=== PATIENT | female | born 1940 | race Caucasian/White ===

== ENCOUNTER 2021-11-12 10:34 | Outpatient (CLI) | payer OTHER, SELFPAY | END 2021-11-12 10:35 | disposition home or self-care (01) | LOC: ANHAUDIO 10:35 | PROVIDERS: PCP Family Medicine; Visit Provider Otolaryngology | DX: H93.13 Tinnitus, bilateral (principal) | CPT/HCPCS: 92557; 92567 ==

== ENCOUNTER 2021-11-20 13:13 | Outpatient (CLI) | payer OTHER, SELFPAY ==
--- NOTE | ~2021-11-20 | US_ITS ---
EXAMINATION: US carotid duplex BI DATE: 11/20/2021 13:54 INDICATION: Lightheadedness TECHNIQUE: Grayscale, color Doppler, and pulsed Doppler images of the cervical carotid arteries were obtained. The degree of vessel stenosis is placed in one of the following categories: normal, <50%, 5 0-69%, >=70% but less than near-occlusion, near-occlusion, or total occlusion. Note that percent sten osis relative to normal distal artery lumen diameter is indirectly measured from velocity measurement s as described by Kofi, et al. Radiology 2003; 229:340-346. Notes: Normal: Peak systolic velocity <125 centimeters/sec and no plaque <50%. Peak systolic velocity <125 ( EDV <40; ICA/CCA PSV ratio <2.0; used these factors only a tandem lesions or low cardiac output or co ntralateral disease) 50-69 %: PSV 125-230 (EDV 40-100; ratio 2-4) >= 70% but less than near occlusion: PSV greater than 230 (EDV > 100; ratio> 4.0) Near Occlusion: PSV that is variable; markedly narrowed lumen Occlusion: Absent flow on color/spectral Doppler and no lumen on wong scale. COMPARISON: None. FINDINGS: RIGHT: The right common carotid artery (CCA) peak systolic velocity (PSV) is 79 cm/s. The right internal car otid artery (ICA) PSV is 78 cm/s. The right ICA end-diastolic velocity (EDV) is 15 cm/s. The right IC A/CCA PSV ratio is 1.. The external carotid artery (ECA) PSV is 97 cm/s. There is antegrade flow in t he right vertebral artery. LEFT: The left CCA PSV is 108 cm/s. The left ICA PSV is 121 cm/s. The left ICA EDV is 18 cm/s. The left ICA /CCA PSV ratio is 1.1. The ECA PSV is 132 cm/s. There is antegrade flow in the left vertebral artery . IMPRESSION: 1. Less than 50% stenosis in the right internal carotid artery by sonographic criteria. 2. Less than 50% stenosis in the left internal carotid artery by sonographic criteria. Reviewed, dictated and finalized at location A. IMPRESSION: 1. Less than 50% stenosis in the right internal carotid artery by sonographic jesse narayan. 2. Less than 50% stenosis in the left internal carotid artery by sonographic zulema patel.
== END 2021-11-20 13:14 | disposition home or self-care (01) ==
LOC: ANHIMG 13:17
PROVIDERS: PCP Family Medicine; Visit Provider Family Medicine
DX: R42 Dizziness and giddiness (principal); I65.23 Occlusion and stenosis of bilateral carotid arteries
CPT/HCPCS: 93880

== ENCOUNTER → 2021-12-16 14:50 | Outpatient (CLI) | payer OTHER, SELFPAY ==
--- NOTE | ~2021-12-16 | CT_ITS ---
EXAMINATION: CTA brain DATE: 12/16/2021 15:58 INDICATION: Pulsatile tinnitus. TECHNIQUE: Computed tomographic angiography (CTA) of the head was performed without and with 100 mL O mnipaque-350 intravenous contrast. Automated exposure control and iterative reconstruction technique were employed. The dose-length product was 1120.52 mGy-cm. Maximum intensity projection 3D reconstru ctions were created. Volume-rendered 3D reconstructions of the intracranial arteries were created by the technologist on a separate workstation. COMPARISON: Head CT 10/28/2017, brain MRI 11/03/2018 FINDINGS: There are scattered areas of low attenuation in the cerebral white matter. There is no intr acranial hemorrhage, acute infarction, or abnormal intracranial mass lesion. The ventricles are daniel l in size. There are likely changes of ocular lens replacement surgeries. Right ocular globe is small and aspherical with calcifications, consistent with atelectasis bullae. The paranasal sinuses are cl ear. The middle ears are normal. The mastoid air cells are normal. Left vertebral artery is dominant. There is no significant stenosis of basilar artery or the posterior cerebral arteries. The posterior communicating arteries are normal. There is no significant stenosis of the intracranial internal car otid arteries or anterior or middle cerebral arteries. 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 There is a 6 mm saccular aneurysm of supraclinoid right in ternal carotid artery directed anteroinferolaterally. There is a 2 mm saccular aneurysm of supraclino id left internal carotid artery directed inferiorly. IMPRESSION: 1. Moderate nonspecific cerebral white matter disease, which likely represents chronic small vessel i schemic disease. 2. 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 2. 2 mm saccular aneurysm of supraclinoid left internal carotid artery. 3. 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 Reviewed, dictated and finalized at location B. IMPRESSION: 1. Moderate nonspecific cerebral white matter disease, which likely represents chronic small vessel ischemic disease. 2. 3 mm saccular aneurysm of the ophthalmic segment of left internal carotid ar louise. 2. 2 mm saccular aneurysm of supraclinoid left internal carotid artery. 3. 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
[2021-12-16 15:13] LABS: Estimated Glomerular Filt Rate 40
== END ==
PROVIDERS: PCP Family Medicine; Visit Provider Otolaryngology
DX: H93.A3 Pulsatile tinnitus, bilateral (principal); R90.82 White matter disease, unspecified; I72.0 Aneurysm of carotid artery
CPT/HCPCS: 70496; Q9967

== ENCOUNTER 2022-09-28 12:30 | Outpatient (CLI) | payer OTHER, SELFPAY ==
--- NOTE | 2022-09-28 14:00 | NEURO_ITS ---
Impression: # Complains of numbness of right 5th finger. # Right ulnar neuropathy. # No Carpal Tunnel Syndrome. # Needle/EMG exam not requested. Nerve Conduction Studies Anti Sensory Summary Table Stim Site NR Peak (ms) P-T Amp (?V) Site1 Site2 Delta-P (ms) Dist (cm) Jason (m/s) Right Median Anti Sensory (2-3nd Digit) Wrist 3.4 10.7 Wrist 2-3nd Digit 3.4 14.0 41 Wrist 3.6 38.4 Wrist 2-3nd Digit 3.4 14.0 41 Right Radial Anti Sensory (Base 1st Digit) Wrist 2.7 15.5 Wrist Base 1st Digit 2.7 0.0 Right Ulnar Anti Sensory (5th Digit) Wrist 2.9 46.3 Wrist 5th Digit 2.9 14.0 48 Motor Summary Table Stim Site NR Onset (ms) O-P Amp (mV) Site1 Site2 Delta-0 (ms) Dist (cm) Jason (m/s) Right Median Motor (Abd Poll Brev) Wrist 4.0 3.9 Elbow Wrist 4.8 27.0 56 Elbow 8.8 4.5 Right Ulnar Motor (Abd Dig Minimi) Wrist 2.8 6.0 A Elbow Wrist 6.0 26.0 43 A Elbow 8.8 4.2 B Elbow Wrist 3.9 18.0 46 B Elbow 6.7 3.9 F Wave Studies NR F-Lat (ms) L-R F-Lat (ms) Right Median (Mrkrs) (Abd Poll Brev) 29.54 Right Ulnar (Mrkrs) (Abd Dig Min) 30.18 MTDD
== END 2022-09-28 12:31 | disposition home or self-care (01) ==
LOC: ANHNEURO 12:32
PROVIDERS: PCP Family Medicine; Visit Provider Family Medicine
DX: R20.2 Paresthesia of skin (principal); G56.21 Lesion of ulnar nerve, right upper limb
CPT/HCPCS: 95909

== ENCOUNTER 2022-11-08 15:17 | Outpatient (CLI) | payer OTHER, SELFPAY ==
--- NOTE | ~2022-11-08 | US_ITS ---
EXAMINATION: US pelvic complete DATE: 11/08/2022 16:06 INDICATION: Uterine prolapse Comparison:No prior studies for comparison. TECHNIQUE: Multiple transabdominal sonographic images of the pelvis performed. FINDINGS: The uterus measures 5.4 x 2 x 4.6 cm. There are coarse myometrial calcifications, possibly due to underlying fibroid changes. The endometrial complex measures 2 mm. The right ovary measures 1.5 x 0.7 x 1.1 cm and the left ovary measures 1.3 x 1.2 x 1 cm. There are small follicles in each ovary. Normal doppler signal in both ovaries. There is no free fluid in the pelvis. There are no abnormal masses seen on either side. IMPRESSION: 1. Unremarkable pelvic ultrasound. Reviewed, dictated and finalized at location B.
== END 2022-11-08 15:18 | disposition home or self-care (01) ==
PROVIDERS: PCP Family Medicine; Visit Provider Urology
DX: N81.4 Uterovaginal prolapse, unspecified (principal)
CPT/HCPCS: 76856

== ENCOUNTER 2023-03-01 07:51 | Outpatient (CLI) | payer OTHER, SELFPAY ==
--- NOTE | 2023-03-01 08:46 | ECG_ITS ---
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
[2023-03-01 09:12] LABS: Basophils Absolute Auto 0.1 K/mm3 (0.0-0.1); Basophils Percent Auto 0.7 % (0.2-1.2); Eosinophils Absolute Auto 0.2 K/mm3 (0-0.3); Eosinophils Percent Auto 3.3 % (0-4.4); Hematocrit 36.3 % (37.0-47.0); Hemoglobin 12.1 g/dL (12.0-15.0); Immature Granulocyte Absolute 0.04 K/mm3 (0.00-0.031); Immature Granulocyte Percent A 0.6 % (0-0.5); Lymphocytes Absolute Auto 1.55 K/mm3 (0.9-3.2); Lymphocytes Percent Auto 21.4 % (18.3-44.2); Mean Corpuscular HGB Conc 33.3 g/dl (32-36); Mean Corpuscular Hemoglobin 32.2 pg (26-34); Mean Corpuscular Volume 96.5 fl (80-100); Mean Platelet Volume 10.8 fl (7.4-10.4); Monocytes Absolute Auto 0.5 K/mm3 (0.1-0.6); Monocytes Percent Auto 6.6 % (2.6-8.5); Neutrophils Absolute Auto 4.9 K/mm3 (1.3-6.7); Neutrophils Percent Auto 67.4 % (45.5-73.1); Platelet Count Result 147 k/mm3 (150-375); Red Blood Count 3.76 M/mm3 (4.2-5.4); Red Cell Distribution Width 12.2 % (11.5-14.5); White Blood Count 7.2 K/mm3 (4.5-10.0)
[2023-03-01 09:23] LABS: INR 1.1; Partial Thromboplastin Time 32.2 SECONDS (22.3-36.8)
[2023-03-01 09:24] LABS: Alanine Aminotransferase 16 U/L (6-35); Albumin Level 4.2 g/dL (3.5-5.1); Alkaline Phosphatase 57 U/L (38-126); Anion Gap 10 mmol/L (8-16); Aspartate Amino Transferase 22 U/L (14-36); Bilirubin,Total 0.8 mg/dL (0.2-1.3); Blood Urea Nitrogen 27 mg/dL (7-17); Calcium 9.5 mg/dL (8.4-10.2); Carbon Dioxide 28 mmol/L (22-30); Chloride 103 mmol/L (98-107); Estimated Glomerular Filt Rate 43; Glucose 137 mg/dL (65-110); Potassium 3.9 mmol/L (3.4-5.0); Sodium 141 mmol/L (137-145)
== END 2023-03-01 07:52 | disposition home or self-care (01) ==
LOC: ANHSURGERY 07:55
PROVIDERS: PCP Family Medicine; Visit Provider Urology
DX: N81.9 Female genital prolapse, unspecified (principal); I10 Essential (primary) hypertension; Z01.818 Encounter for other preprocedural examination; I45.9 Conduction disorder, unspecified
CPT/HCPCS: 36415; 80053; 85025; 85610; 85730; 86850; 86900; 86901; 93005

== ENCOUNTER 2023-03-11 03:28 | Day surgery (SDC) | payer OTHER, SELFPAY ==
--- NOTE | 2023-03-01 07:52 | PC.NURSE ---
PRE-OP INSTRUCTIONS, PLEASE READ CAREFULLY Report to the Outpatient Waiting Room, entrance under the green pavilion located off [facility], at time _0615_ on date _03/11/23_. Planned Procedure Time: _0815_. PACK A SMALL OVERNIGHT BAG AND LEAVE IT IN THE CAR Time changes happen often and if your time is changed the preop area will call you the afternoon before. - You and your visitor will be asked to self-screen and do not enter if you have any COVID symptoms. - A mask is optional within the hospital at this time. -VISITING HOURS 8AM-8PM Patients may have clear liquids (water, carbonated beverages, clear teas, apple juice) until 3 hours prior to surgery (0515 AM) with a maximum of 20 ounces. - No food from midnight until time of surgery Take the following medications with a SIP of water the morning of surgery: _AMLODIPINE, BUSPIRONE, METOPROLOL & TYLENOL, SPIRIVA INHALER, NASAL SPRAY, NITROGLYCERIN IF NEEDED_ DO NOT STOP ANY OF YOUR OTHER PRESCRIPTION MEDICATIONS PRIOR TO SURGERY ?EXCEPT THE FOLLOWING Medications to discontinue - _ASPIRIN PER DR. CARVALHO'S INSTRUCTIONS, Date to take last dose_CALL DR. CARVALHO'S OFFICE FOR INSTRUCTIONS ([phone]) _ Please no make-up, nail anguillan, hairspray, perfume, deodorant, or body powder the day of surgery. No jewelry (including any body piercings) or valuables the day of surgery, leave them at home. Please take a shower or bath the night before, or the morning of, surgery with an antibacterial soap. Wear comfortable, loose fitting clothing. - Jewelry must be removed prior to entering the operating room. Rings and piercings that are not removed may be cut off. - The hospital will not accept responsibility for valuables. - Please leave all valuables, including medications, at home the day of surgery. If you are going home after surgery, a licensed lead driver must drive you home. - NO public transportation without another adult if you receive anesthesia. - We recommend that an adult stay with you for 24 hours following discharge. - We also recommend that you do not drive, make important decision, drink alcoholic beverages, or take any drugs that were not prescribed by your health care provider for at least 24 hours after your discharge time. Follow any additional instructions given to you from your surgeon. If you or anyone in your household have experienced Covid symptoms in the past week, please notify your surgeon or the nurse liaison at the phone number below for possible testing. Instructions given to _PATIENT_and asked if any additional questions and then verbalized understanding. Patient advised to call pre surgery nurse liaison [phone] if any additional questions.
[2023-03-01 08:23] VITALS: BP 162/58; PULSE 62; RESP 18; TEMP 36.8; O2SAT 99; BMI 16.2
--- NOTE | 2023-03-06 10:11 | PM.IMHP ---
H&P: HPI History of Present Illness Date/Time: 03/06/23 10:11 Chief Complaint: uterine prolapse Narrative: she is significant uterine prolapse. Normal endometrial thickness. No stress incontinence. She desires a surgical approach Review of Systems Review of Systems: All systems reviewed & are unremarkable except as noted in HPI and below PMFSH Past Medical History Medical History Urinary incontinence Social History Social History Smoking status: Former smoker Tobacco type: cigarettes Second hand tobacco smoke exposure: No Additional smoking assessment comments: PT UNALBE TO RECALL SMOKING HX - STATES QUIT WHEN HAD BYPASS SURGERY Alcohol intake: never Substance use: never Substance use type: does not use Living arrangements: alone Spiritual care concerns: No Meds Home Medications and Allergies Home Medications Medication Instructions Recorded Confirmed Type acetaminophen 325 mg capsule 325 mg PO Q6H PRN Pain 06/30/20 03/01/23 History (Tylenol) amlodipine 10 mg tablet 10 mg PO DAILY 06/30/20 03/01/23 History buspirone 5 mg tablet 5 mg PO BID 06/30/20 03/01/23 History fluticasone propionate 50 1 spray intranasal DAILY PRN 06/30/20 03/01/23 History mcg/actuation nasal Congestion spray,suspension (Flonase Allergy Relief) metoprolol succinate 100 mg 100 mg PO DAILY 06/30/20 03/01/23 History tablet,extended release 24 hr omeprazole 20 mg capsule,delayed 20 mg PO DAILY 06/30/20 03/01/23 History release simvastatin 40 mg tablet 40 mg PO DAILY 06/30/20 03/01/23 History tiotropium bromide 18 mcg capsule 1 cap inhalation DAILY PRN 06/30/20 03/01/23 History with inhalation device (Spiriva Congestion with HandiHaler) nitroglycerin 0.4 mg sublingual 0.4 mg sublingual Q5M PRN Chest 11/09/21 03/01/23 History tablet Pain aspirin 325 mg capsule 325 mg PO DAILY 03/01/23 03/01/23 History isosorbide mononitrate 60 mg 60 mg PO DAILY 03/01/23 03/01/23 History tablet,extended release 24 hr potassium chloride 20 mEq 20 meq PO DAILY 03/01/23 03/01/23 History tablet,extended release(part/cryst) (Klor-Con M) Allergies Allergy/AdvReac Type Severity Reaction Status Date / Time No Known Allergies Allergy Verified 03/01/23 08:12 Exam Narrative: thin no acute distress uterine prolapse +8 Assessment and Plan Assessment and plan (1) Uterine prolapse: Code(s): N81.4 - Uterovaginal prolapse, unspecified Status: Acute Assessment and Plan: plan for colpocleisis. Understands risks of bleeding, infection, damage to bladder bowel, damage to the ureters or surrounding organs, inability to have penetrative intercourse, postoperative voiding dysfunction including incontinence and retention, hip and leg pain, recurrence of prolapse. Agrees to proceed
[2023-03-11] VITALS (11 sets, daily range): BP systolic 132–170; BP diastolic 52–102; PULSE 58–67; RESP 11–20; TEMP 36.3; O2SAT 91–100
--- NOTE | 2023-03-11 07:17 | WPDHPUPDATE1 ---
History and Physical Update Update Date/Time: 03/11/23 07:17 History and Physical has been reviewed, including an updated exam of the patient. There are NO changes in the patient's condition. Risks, benefits, and alternatives have been discussed and questions answered. Patient agrees to proceed with procedure.
--- NOTE | 2023-03-11 08:48 | WPDANESEPPF ---
Anes - Initial Pre Proc Eval Procedure: Operation Date: 03/11/23 10:00 Proposed Procedures p Colpocleisis, - Kenton Galarza MD s Urethral Sling - Kenton Galarza MD Date/Time: 03/11/23 08:48 Surgeon: Kenton Galarza MD Pre Op Diagnosis: uterine prolapse, stress incontinence Patient Data Age: 82 Gender: F Height: 1.57 m Weight: 40.2 kg Last Vital Signs Temp 98.2 F 03/01/23 08:23 Pulse 62 03/01/23 08:23 Resp 18 03/01/23 08:23 BP 162/58 H 03/01/23 08:23 Pulse Ox 99 03/01/23 08:23 O2 Del Method Room Air 03/01/23 08:23 Allergies Allergy/AdvReac Type Severity Reaction Status Date / Time No Known Allergies Allergy Verified 03/01/23 08:12 Home Medications Medication Instructions Recorded Confirmed Type acetaminophen 325 mg capsule 325 mg PO Q6H PRN Pain 06/30/20 03/01/23 History (Tylenol) amlodipine 10 mg tablet 10 mg PO DAILY 06/30/20 03/01/23 History buspirone 5 mg tablet 5 mg PO BID 06/30/20 03/01/23 History fluticasone propionate 50 1 spray intranasal DAILY PRN 06/30/20 03/01/23 History mcg/actuation nasal Congestion spray,suspension (Flonase Allergy Relief) metoprolol succinate 100 mg 100 mg PO DAILY 06/30/20 03/01/23 History tablet,extended release 24 hr omeprazole 20 mg capsule,delayed 20 mg PO DAILY 06/30/20 03/01/23 History release simvastatin 40 mg tablet 40 mg PO DAILY 06/30/20 03/01/23 History tiotropium bromide 18 mcg capsule 1 cap inhalation DAILY PRN 06/30/20 03/01/23 History with inhalation device (Spiriva Congestion with HandiHaler) nitroglycerin 0.4 mg sublingual 0.4 mg sublingual Q5M PRN Chest 11/09/21 03/01/23 History tablet Pain aspirin 325 mg capsule 325 mg PO DAILY 03/01/23 03/01/23 History isosorbide mononitrate 60 mg 60 mg PO DAILY 01/02/24 01/02/24 History tablet,extended release 24 hr potassium chloride 20 mEq 20 meq PO DAILY 03/01/23 03/01/23 History tablet,extended release(part/cryst) (Donta Melendez) Patient hx anesthesia problems: none Family hx anesthesia problems: none Results Review: All pre-operative results and documents have been reviewed as part of the pre-operative evaluation. PMFSH Past Medical History Medical History Urinary incontinence Social History Social History Smoking status: Former smoker Tobacco type: cigarettes Second hand tobacco smoke exposure: No Additional smoking assessment comments: PT UNALBE TO RECALL SMOKING HX - STATES QUIT WHEN HAD BYPASS SURGERY Alcohol intake: never Substance use: never Substance use type: does not use Living arrangements: alone Spiritual care concerns: No Anes - Eval Final PreProcedure Day of Procedure 03/11/23 08:48 Patient weight: cachectic Heart: regular rate and rhythm Lungs: clear to auscultation Airway: Mallampati scale class II Neurological: alert and oriented Last oral intake: >/= 8 hours ASA classification: III Emergent: no Anesthetic plan: proceed Anesthesia type and monitoring: general LMA and standard monitoring Results Review: All pre-operative results and documents have been reviewed as part of the pre-operative evaluation. Informed Consent: The patient's anesthetic plan and its attendant risks and benefits were discussed with the patient/family/POA. Questions were solicited and answers provided to the satisfaction of the patient/family/POA.
[2023-03-11] MEDS: ceFAZolin 2 GM/D5W 50 ML 2 GM/50 ML BAG IVPB (09:21)
[2023-03-11] MEDS: BUPIVACAINE/EPINEPHRINE 0.5% 50 ML VIAL 20 ML INFILTRATE (09:48)
[2023-03-11] MEDS: LACTATED RINGERS 1,000 ML 30 ML IV CONT ×2 (11:04→13:10)
--- NOTE | 2023-03-11 11:19 | W.PM.PROC2 ---
Procedure Note - Detailed Date of Procedure 03/11/23 Pre-op Diagnosis uterine prolapse Female perineal laxity Post-op Diagnosis Same Procedure Performed Cystocele repair/rectocele repair LeFort colpocleisis Perineal repair Cystoscopy Surgeon Kenton Galarza MD Anesthesia General Findings This is a woman with significant uterine prolapse. It has been going on for at least a decade. She is not sexually active. She has no stress incontinence. She presents for a colpocleisis. She understands risks of bleeding, infection, damage to any organs, damage to the bowel or urinary tract, recurrence of prolapse, postoperative voiding dysfunction including incontinence and retention. Agrees to proceed Description of Procedure She was correctly identified. Informed consent obtained. She from the operating room. She was given general anesthesia. She was placed in the dorsal lithotomy position. She was prepped and draped in a sterile fashion. Time-out performed. I placed Hong catheter. I placed a Carlton retractor. She had significant uterine prolapse 10 cm beyond the introitus. She has a negative endometrial ultrasound. I santos a rectangle shaped area on the anterior vaginal wall and a rectangle shaped area on the posterior vaginal wall. I anesthetized the mucosa on the posterior vaginal wall. I removed the mucosa leaving the underlying fascial structures. I then did the same on the anterior vaginal wall. I then performed a plication type cystocele rectocele repair which essentially performed a LeFort colpocleisis leaving drainage tunnels on the side. I did this with several interrupted rows of 0 Vicryl suture. This completed a closure of the vagina. I then closed mucosa to mucosa with a horizontal mattress interrupted 0 Vicryl suture. There was excellent hemostasis. There was excellent repair of the prolapse. I then turned my attention to the perineum. She had significant perineal laxity. I santos out a rula-shaped area of skin on the perineum. I anesthetized the skin. I removed the skin. I then performed a high perineoplasty with interrupted 0 Vicryl sutures. I used a 2-0 Vicryl to close mucosa to mucosa. There was excellent perineal support On cystoscopy she had moderate trabeculations. No surgical artifact. No abnormalities or stones. No tumors. Ureteral patency was documented bilaterally by pacing guidewires up both ureters and seen clear excretion of clear yellow urine. I once again assured hemostasis. Rectal exam was normal. She was awakened transferred to PACU in stable condition.
== END 2023-03-11 14:26 | disposition home or self-care (01) ==
PROVIDERS: PCP Family Medicine; Visit Provider Urology
PROC: (CPT 57120; principal; 2023-03-11 10:00)
DX: N81.4 Uterovaginal prolapse, unspecified (principal); N32.89 Other specified disorders of bladder; Z87.891 Personal history of nicotine dependence
CPT/HCPCS: 57260; 36415; 80053; 85025; 85610; 85730; 86850; 86900; 86901; 93005; C1758; C1769; J0690; J1100; J2405; J2704; J3010; J7030; J7120; Q9968

== ENCOUNTER 2023-09-26 15:29 | Outpatient (CLI) | payer OTHER, SELFPAY ==
--- NOTE | ~2023-09-26 | US_ITS ---
EXAMINATION: US renal BI DATE: 09/26/2023 16:31 INDICATION: Stage IIIB chronic kidney disease TECHNIQUE: Multiple ultrasound grayscale images of the kidneys were obtained. COMPARISON: None. FINDINGS: The right kidney measures 8.3 x 4.3 x 3.7 cm. The left kidney measures 8.8 x 3.8 x 3.2 cm. The kidney s demonstrate normal echogenicity. Likely age-related mild bilateral renal cortical thinning. There i s no hydronephrosis in either kidney. No shadowing renal stones identified. The bladder is incomplet donn distended which mildly limits evaluation. Suggestion of mild trabeculation along the bladder muco sa. Bilateral ureteral jets are visualized in the bladder on color Doppler. There are multiple echoge stephany and shadowing gallstones in the normal nondistended gallbladder.. IMPRESSION: 1. Likely age-related mild bilateral renal cortical atrophy. No hydronephrosis. 2. Suggestion of a trabeculated bladder wall which can be seen with chronic outlet obstruction or blas rogenic bladder. Assessment is however limited by incomplete distention of the bladder. 3. Cholelithiasis. Reviewed, dictated and finalized at location A. IMPRESSION: 1. Likely age-related mild bilateral renal cortical atrophy. No hydronephrosis . 2. Suggestion of a trabeculated bladder wall which can be seen with chronic out let obstruction or neurogenic bladder. Assessment is however limited by incompl ete distention of the bladder. 3. Cholelithiasis.
== END 2023-09-26 15:30 | disposition home or self-care (01) ==
PROVIDERS: PCP Family Medicine; Visit Provider Internal Medicine Nephrology
DX: I12.9 Hypertensive chronic kidney disease with stage 1 through stage 4 chronic kidney disease, or unspecified chronic kidney disease (principal); N18.32 Chronic kidney disease, stage 3b; K80.20 Calculus of gallbladder without cholecystitis without obstruction
CPT/HCPCS: 76775

== ENCOUNTER 2023-10-24 14:54 | Outpatient (CLI) | payer OTHER, SELFPAY ==
--- NOTE | ~2023-10-24 | XR_ITS ---
EXAMINATION: XR chest 2V 10/24/2023 15:10 INDICATION: Abnormal weight loss PROCEDURE: 2 view chest COMPARISON: 11/03/2018 FINDINGS: The lungs are clear. Status post median sternotomy for CABG. The cardiomediastinal silhouet te is within normal limits. There are no pleural effusions. There is no pneumothorax suspected. Th ere is atherosclerosis. The lungs are hyperinflated which is consistent with, but not diagnostic of c hronic obstructive pulmonary disease. IMPRESSION: 1: NO ACUTE CARDIOPULMONARY DISEASE. Reviewed, dictated and finalized at location B.
== END 2023-10-24 14:55 ==
LOC: MICIMG 14:56
PROVIDERS: PCP Nurse Practitioner Family; Visit Provider Nurse Practitioner Family
DX: R63.4 Abnormal weight loss (principal)
CPT/HCPCS: 71046

== ENCOUNTER 2023-12-09 09:45 | Outpatient (CLI) | payer OTHER, SELFPAY ==
--- NOTE | ~2023-12-09 | MR_ITS ---
EXAMINATION: MR brain/brain stem wo con DATE: 12/09/2023 10:28 INDICATION: Headache, unspecified. TECHNIQUE: Magnetic resonance imaging (MRI) of the brain and brainstem was performed without intraven ous contrast. COMPARISON: Brain MRI 11/03/2018, head CT 12/16/2021 FINDINGS: There are scattered areas of nonspecific increased T2-weighted signal intensity in the cere bral white matter. There is no intracranial hemorrhage, acute infarction, or abnormal intracranial ma ss lesion. The ventricles are normal in size. There are likely changes of ocular lens replacement caleb geries. Right ocular globe is small and deformed. IMPRESSION: 1. Moderate nonspecific cerebral white matter disease, which likely represents chronic small vessel i schemic disease. Reviewed, dictated and finalized at location A. IMPRESSION: 1. Moderate nonspecific cerebral white matter disease, which likely represents chronic small vessel ischemic disease.
== END 2023-12-09 09:46 | disposition home or self-care (01) ==
PROVIDERS: PCP Nurse Practitioner Family; Visit Provider Nurse Practitioner Family
DX: R90.82 White matter disease, unspecified (principal); R51.9 Headache, unspecified; H53.9 Unspecified visual disturbance
CPT/HCPCS: 70551

== ENCOUNTER 2024-03-08 09:12 | Outpatient (CLI) | payer OTHER, SELFPAY ==
--- NOTE | ~2024-03-08 | CT_ITS ---
CLINICAL INDICATION: Occlusion and stenosis. COMPARISON: None. TECHNIQUE: Computed tomography angiography (CTA) of the abdomen and pelvis was performed with 100 mL Omnipaque-350 intravenous contrast timed to evaluate the abdominal aorta and mesenteric vasculature. Coronal maximum intensity projection 3D-reconstructions were created by the technologist. The dose-le ngth product (DLP) was 182.54 mGy-cm. Automated exposure control and iterative reconstruction Optensity ue were employed. FINDINGS/OBSERVATIONS: Visualized lower thorax:Coarse interstitial lung markings are identified. No discrete mass or pulmona ry nodules are present. Liver: The liver is decreased in attenuation and unremarkable in size measuring 14 cm in longitudinal dimension. Gallbladder and biliary system: Multiple stones are identified within the gallbladder which is otherw ise unremarkable. Pancreas: The pancreas enhances homogeneously, without ductal dilatation. Spleen: Punctate calcifications identified within the splenic parenchyma, suggesting prior granulomat ous disease. The remainder of the spleen otherwise enhances homogeneously, and is not enlarged measu ring 7 cm in longitudinal dimension Kidneys: Bilateral kidneys enhance symmetrically without hydronephrosis or renal calculi Adrenal glands: Unremarkable Gastrointestinal tract: Fecal stasis within the colon. VASCULATURE: ABDOMINAL AORTA Bulky calcifications are identified along the entirety of the abdominal aorta. A penetrating atherosclerotic ulcer is identified bulging to the left of midline within the infrarena l abdominal aorta, just above the bifurcation. The anterior to posterior dimension of the abdominal aorta at this level measures 17.5mm. A smooth interface with the surrounding intramural hematoma is identified. The penetration depth of the ulcer measures 9.5 mm with a maximal width of 24.6 mm. Typically, a penetration depth of greater than 10 mm and a maximal width (the perpendicular dimension of the ulcer within the vessel wall) of greater than 20 mm is associated with a higher rate of progr ession to aortic dissection, aneurysm and rupture. Increasing aortic diameter at the level of the ulcer (as in this patient) is predictive of medical ma nagement failure. Just above the level of the aortic bifurcation the contrast extends beyond the intimal calcification, to the right of midline suggesting a penetrating atherosclerotic ulcer this is just caudal to the pe netrating atherosclerotic ulcer to the left of midline, as described above. The depth of penetration measures 4.6 mm. The maximal width of the infrarenal abdominal aorta at this level measures 17 mm. 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 Nonconventional anatomy is identified within the celiac axis with the common hepatic artery origi nating from the SMA. Bulky calcifications are also identified along the proximal 25 mm of the SUPERIOR MESENTERIC ARTERY c onsistent with a long, high-grade stenosis. A replaced common hepatic artery originates from the superior mesenteric artery, just distal to this densely calcified segment. High-grade stenosis of the diminutive INFERIOR MESENTERIC ARTERY is also noted, but it is patent payam g its proximal course. 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 High-grade stenosis of the RIGHT COMMON ILIAC ARTERY with filling of the internal and external iliac arteries via collateralization from distal branches of the ileocolic artery. This short segment lesio n measures 19.5 mm. The left common femoral artery measures 6.5 mm dilating to 11.2 mm within the left common iliac arter y. The right common femoral artery is diffusely diseased demonstrating multiple dense calcifications and measures 5.4 mm, enlarging to a caliber of 8.5 mm just proximal to the 15 mm high-grade stenosis wit hin the right common iliac artery, as described above. Lymph nodes: No pathologically enlarged or morphologically suspicious lymph nodes within the retroper itoneum or at the root of the mesentery. Pelvic structures:The bladder is only minimally distended, and otherwise unremarkable. The uterus is retroverted and retroflexed and contains bulky calcifications suggesting prior fibroid disease. Body wall and musculoskeletal: Degenerative disease within the lumbosacral spine, with osteophyte for mation, disc space narrowing, endplate changes and vacuum phenomena at the level of L4/L5. IMPRESSION: Diffuse calcified atherosclerotic disease within the abdominal aorta, mesenteric, renal and bilateral iliac arteries. A penetrating atherosclerotic ulcer bulges to the left of midline within the infrarenal abdominal aor ta, just above the bifurcation. The penetration depth of the ulcer measures 9.5 mm with a maximal width of 24.6 mm. Typically, a penetration depth of greater than 10 mm and a maximal width (the perpendicular dimension of the ulcer within the vessel wall) of greater than 20 mm is associated with a higher rate of progr ession to aortic dissection, aneurysm and rupture. Increasing aortic diameter at the level of the ulcer (as in this patient) is predictive of medical ma nagement failure. An additional (smaller) penetrating atherosclerotic ulcer is identified just above the level of the a ortic bifurcation, as detailed above. Common iliac and common femoral measurements are described above. Reviewed, dictated and finalized at location A. IRATORY CARE PRACTITIONER IMPRESSION: Diffuse calcified atherosclerotic disease within the abdominal aorta, mesenteri c, renal and bilateral iliac arteries. A penetrating atherosclerotic ulcer bulges to the left of midline within the in frarenal abdominal aorta, just above the bifurcation. The penetration depth of the ulcer measures 9.5 mm with a maximal width of 24.6 mm. Typically, a penetration depth of greater than 10 mm and a maximal width (the p erpendicular dimension of the ulcer within the vessel wall) of greater than 20 mm is associated with a higher rate of progression to aortic dissection, aneury sm and rupture. Increasing aortic diameter at the level of the ulcer (as in this patient) is pr edictive of medical management failure. An additional (smaller) penetrating atherosclerotic ulcer is identified just ab ove the level of the aortic bifurcation, as detailed above. Common iliac and common femoral measurements are described above.
[2024-03-08 09:51] LABS: Estimated Glomerular Filt Rate 39
== END 2024-03-08 09:13 | disposition home or self-care (01) ==
PROVIDERS: PCP Family Medicine; Visit Provider Nurse Practitioner Family
DX: I65.29 Occlusion and stenosis of unspecified carotid artery (principal); I70.0 Atherosclerosis of aorta; I77.1 Stricture of artery; E78.5 Hyperlipidemia, unspecified
CPT/HCPCS: 74174; Q9967